=== PATIENT | female | born 1965 | race Caucasian/White ===

== ENCOUNTER 2017-09-27 08:53 | Emergency (ER) | payer OTHER ==
[~2017-09-27] VITALS: Ht 160 cm; Wt 72.7 kg
[~2017-09-27 08:53] MED LIST: LISI-661 PO; PARO20TA24 PO
[2017-09-27] MEDS ORDERED: HYDR25TA PO (09:00)
[2017-09-27 09:13] VITALS: BP 155/105
[2017-09-27 09:35] LABS: INFLUENZA TYPE B NEGATIVE FOR TYPE B (NEGATIVE)
== END 2017-09-27 09:58 | disposition home or self-care (01) ==
LOC: EMS 08:54
DX: J06.9 Acute upper respiratory infection, unspecified (principal); I10 Essential (primary) hypertension; J34.89 Other specified disorders of nose and nasal sinuses; Z88.5 Allergy status to narcotic agent
CPT/HCPCS: 87804; 99284